=== PATIENT | female | born 1975 | race Caucasian/White ===

== ENCOUNTER 2025-06-01 11:16 | Outpatient (CLI) | payer BC, SELFPAY ==
--- NOTE | ~2025-06-01 | US_ITS ---
EXAMINATION: US pelvic complete, 06/01/2025 11:28 HEALTHCARE TRANSLATOR HISTORY: Displacement of intrauterine contraceptive device, initial e Comparison: None Technique: Tejada-scale and color Doppler images were obtained. Findings: Uterus: Uterus anteverted 12.3 x 3.7 x 3.2 cm. IUD within the uterine cavity appropriate location. . Endometrium 3 mm. Right Ovary:Right ovary 8.1 x 3.2 x 5 cm, no adnexal mass, normal flow, simple appearing cysts the largest measuring 4.9 x 4.5 cm. Left Ovary: Left ovary 4.1 x 2.5 x 4.4 cm, no adnexal mass, normal flow, simple appearing cyst 3.5 x 3 cm. Free Fluid: None Impression: 1. IUD in appropriate location. 2. Bilateral probable functional ovarian cyst. Follow-up recommended in 6 weeks to assess resolution Reviewed, dictated and finalized at location P. THCARE TRANSLATOR Impression: 1. IUD in appropriate location. 2. Bilateral probable functional ovarian cyst. Follow-up recommended in 6 weeks to assess resolution
== END 2025-06-01 11:17 | disposition home or self-care (01) ==
LOC: MICIMG 11:17
DX: T83.32XA Displacement of intrauterine contraceptive device, initial encounter (principal)
CPT/HCPCS: 76856